=== PATIENT | male | born 1965 | race Caucasian/White ===

== ENCOUNTER 2017-11-20 14:58 | Emergency (ER) | payer SELFPAY ==
[2017-11-20] MEDS: LORazepam 2 MG/ML VIAL ONE (15:48)
--- NOTE | 2017-11-20 15:57 | ED Physician Documentation ---
General Adult - HISTORIAN Historian: patient, spouse - [facility] Chief Complaint: General Adult Additional Information: recurrent panic attacks w/chronic anxiety for years. prev took prozac w/ success Onset: other (years) Timing: worse Severity: moderate - ROS CONST: no problems EYES/ENT: none CVS/RESP: other (occ palpations) GI/: other (thinks has chronic uti) MS/SKIN/LYMPH: ankle swelling - PAST HX Past History: none (anxiety depression issues since childhood-had demanding marine father) Other History: none Surgeries/Procedures: none Allergies/Adverse Reactions: Allergies Allergy/AdvReac Type Severity Reaction Status Date / Time No Known Allergies Allergy Verified 11/20/17 16:00 - SOCIAL HX Smoking History: non-smoker Alcohol Use: rarely Drug Use: marijuana (rarely) - FAMILY HX Family History: Yes (ihd) - REVIEWED ASSESSMENTS Nursing Assessment Reviewed: Yes Vitals Reviewed: Yes ED Results Lab/Radiology - Orders Orders: ED Orders Category Date Time Status CBC/PLATELET/DIFF Routine Lab 11/20/17 Ordered CMP Routine Lab 11/20/17 Ordered TSH [THYROID STIMULATING HORMONE] Stat Lab 11/20/17 Ordered URINALYSIS Stat Lab 11/20/17 Ordered LORazepam [Ativan] Med 11/20/17 15:53 Once 1 mg IVP NOW ONE LORazepam [Ativan] Med 11/20/17 15:46 Discontinued 2 mg .ROUTE .STK-MED ONE General Adult Physical Exam - PHYSICAL EXAM GENERAL APPEARANCE: moderate distress EENT: eye inspection normal NECK: normal inspection, supple RESPIRATORY: no resp distress, breath sounds normal CVS: reg rate & rhythm, heart sounds normal, tachycardia ABDOMEN: soft, non-tender SKIN: warm/dry, normal color. No: cyanosis, diaphoresis, jaundice, mottled EXTREMITIES: non-tender, normal range of motion, no edema NEURO: oriented X3, motor nml, sensation nml. No: mood/affect nml Discharge Clincal Impression: acute exaberation chronic anxiety Referrals: Primary Doctor,No [Primary Care Provider] - 2 Days Comments: home meds - establish soon w/pcp Condition: Good Disposition: 01 HOME, SELF-CARE Decision to Admit: NO Decision Time: 17:20
[2017-11-20 16:06] LABS: BASOPHILS % 0.5 (0.0-1.5); EOSINOPHILS % 2.3 % (0.0-6.8); MEAN CORPUSCULAR HEMOGLOBIN 34.4 pg (28.0-34.0); MEAN CORPUSCULAR VOLUME 96.5 fl (80.0-100.0)
[2017-11-20 16:09] LABS: APPEARANCE,URINE Clear (CLEAR); COLOR,URINE Yellow (YELLOW); OCCULT BLOOD,URINE Negative (NEGATIVE); PH URINE 8.5 (5.0 - 8.0); UROBILINOGEN URINE 0.2 Eu (0.2-1.0)
[2017-11-20 16:16] LABS: eGFR (African) > 60; eGFR (Non-African) > 60
[2017-11-20] MEDS: LORazepam 2 MG/ML VIAL IVP ONE ×2 (16:18→16:42)
[2017-11-20 17:33] VITALS: BP 116/71
== END 2017-11-20 17:25 | disposition home or self-care (01) ==
LOC: ED 14:58
DX: F41.8 Other specified anxiety disorders (principal)
CPT/HCPCS: 80053; 81002; 84443; 85025; J2060; 96374; 96376; 99283; S1016

== ENCOUNTER 2017-11-22 13:08 | Outpatient (CLI) | payer SELFPAY | END 2017-11-22 13:10 | LOC: LAB 13:08 | PROVIDERS: ATTEND Family Medicine | DX: Z12.5 Encounter for screening for malignant neoplasm of prostate (principal) | CPT/HCPCS: 84153; G0103 ==